=== PATIENT | male | born 1995 | race Two or more races ===

== ENCOUNTER 2018-12-11 14:12 | Outpatient (CLI) | payer MEDICAID ==
[2018-12-11 13:00] VITALS: BP 122/70
[2018-12-12] MEDS ORDERED: NO MEDICATION (11:31)
--- NOTE | 2018-12-12 21:15 | Consultation ---
DATE OF CONSULTATION: 12/11/2018 NOTE: "POOR AUDIO QUALITY" GASTROENTEROLOGY CONSULTATION CHIEF COMPLAINT: Abdominal pain. HISTORY OF PRESENT ILLNESS: This is a 23-year-old male with complaint of abdominal pain for about 8 years and some constipation, having problems with apparently seen by another GI, had complete workup, was ordered to have an endoscopy and colonoscopy, which have never been done. He is having abdominal pain, mostly in bilateral lower quadrants. No nausea. No vomiting. No dysphagia. No odynophagia. No significant weight loss. No significant weight gain. The patient had a stool check and showed positive for calprotectin, so the patient was referred to us for colonoscopy for possible colitis. PAST MEDICAL HISTORY: Questionable IBS, constipated. PAST SURGICAL HISTORY: Hernia repair. MEDICATIONS: See medication reconciliation list. ALLERGIES: No known drug allergies. FAMILY HISTORY: No family history of GI malignancies. SOCIAL HISTORY: The patient denies any tobacco, alcohol, or IV drug abuse. PHYSICAL EXAMINATION: VITAL SIGNS: Temperature 98, blood pressure 122/70, pulse 89, and respirations 20. HEENT: Normocephalic and atraumatic. Sclerae anicteric. NECK: Supple. No evidence of lymphadenopathy. CARDIOVASCULAR: Regular rate and rhythm. Plus S1 and S2. No obvious murmur. LUNGS: Clear to auscultation bilaterally. ABDOMEN: Positive bowel sounds. Soft and nontender. No rebound. No guarding. No peritoneal sign. EXTREMITIES: No cyanosis, no clubbing, no edema. ASSESSMENT AND PLAN: This is a 23-year-old male with what seems to be constipated form of IBS given the problems over about 8 years. The patient does not want to undergo any treatment for constipation. He received prior medication in the past, even if they worked, they did not resolve his symptoms. Given positive stool for calprotectin, the patient will benefit from GI procedures including endoscopy and colonoscopy to rule out inflammatory bowel disease. The patient was given the instruction for the procedure. The patient was given preparation. We did authorization to schedule the patient for endoscopy and colonoscopy. Case Delvalle M.D. DR: CARLYN JOB#: [id number] CC:
== END 2018-12-11 15:55 | disposition home or self-care (01) ==
LOC: PAN 14:12
DX: R10.9 Unspecified abdominal pain (principal); K58.1 Irritable bowel syndrome with constipation

== ENCOUNTER 2019-05-14 14:33 | Outpatient (CLI) | payer MEDICAID ==
[~2019-05-14 14:33] MED LIST: NO MEDICATION
--- NOTE | 2019-05-14 15:03 | General Progress Note ---
Assessment/Plan Assessment/Plan: abd pain diarrhea constipation bloading linzess 145 Xifaxan trial VSL #3 plan EGD Subjective ROS Limited/Unobtainable: Yes Allergies: Coded Allergies: No Known Allergies (Unverified , 12/12/18) Objective General Appearance: alert EENT: normal ENT inspection Neck: normal alignment Cardiovascular: normal rate Respiratory/Chest: decreased breath sounds Abdomen: normal bowel sounds, non tender, soft Extremities: non-tender Case Delvalle MD May 14, 2019 15:03
[2019-05-14 15:26] VITALS: BP 105/68
== END 2019-05-14 16:33 | disposition home or self-care (01) ==
LOC: PAN 14:33
DX: R10.9 Unspecified abdominal pain (principal); R19.7 Diarrhea, unspecified; K59.00 Constipation, unspecified; R14.0 Abdominal distension (gaseous)